=== PATIENT | male | born 1945 | race Caucasian/White ===

== ENCOUNTER 2022-04-20 05:39 | Inpatient (IN) | payer OTHER ==
[~2022-04-20] VITALS: Ht 172.7 cm; Wt 96.2 kg
[2022-04-20 05:41] VITALS: BP_SYST 137
--- NOTE | 2022-04-20 05:44 | NUR ---
PT BIB BLS TRANSPORT C/O NAUSEA SINCE 1600 YESTERDAY. PT DENIES ABD PAIN, DENIES V/D. PER PT IT GOT WORST WHEN STANDING WITH DIZZINESS. PMH;HTN,CAD WITH STENT PLACEMENT,DM, COPD PT AAO, NO SOB NOTED, PENDING MD ENRIQUEZ
--- NOTE | 2022-04-20 05:52 | NUR ---
# [20] gauge angiocath placed to [left forearm]. Use of asceptic technique. Opsite placed over site. Blood return noted. Blood for lab drawn from site. Flushed with 10 cc of normal saline. No evidence of infiltration noted. Patient tolerated well. BLOOD SENT TO LAB.
[2022-04-20 06:38] LABS: BASOPHILS % (AUTO) 0.4 % (0.0-2.0); EOSINOPHILS % (AUTO) 0.7 % (0.0-4.0); LYMPHOCYTES # (AUTO) 1.4 K/uL (1.0-5.5); LYMPHOCYTES % (AUTO) 22.6 % (20.5-51.5); MEAN CORPUSCULAR HEMOGLOBIN 36 pg (27-31); MEAN CORPUSCULAR HGB CONC 34 % (32-36); MEAN CORPUSCULAR VOLUME 104 fL (79.0-98.0); MONOCYTES # (AUTO) 0.8 K/uL (0.0-1.0); MONOCYTES % (AUTO) 12.7 % (1.7-9.3); NEUTROPHILS % (AUTO) 63.6 % (40.0-70.0); PLATELET COUNT (AUTO) 120 K/uL (130-430); RED CELL DISTRIBUTION WIDTH 18.4 % (9.0-15.0); WHITE BLOOD COUNT (AUTO) 6.2 K/uL (4.8-10.8)
[2022-04-20 07:00] LABS: RED BLOOD CELL COUNT(AUTO) 1.93 MIL/uL (4.2-6.2)
[2022-04-20 07:01] LABS: HEMOGLOBIN 6.8 g/dL (14.0-18.0)
[2022-04-20 07:19] LABS: ANION GAP 7 (5-15); CALCIUM 8.1 mg/dL (8.4-11.0); CHLORIDE 101 mmol/L (98-107); CREATININE 1.28 mg/dL (0.55-1.30); GLUCOSE 125 mg/dL (70-99); POTASSIUM 3.7 mmol/L (3.5-5.1); UREA NITROGEN, BLOOD 39 mg/dL (8-21)
--- NOTE | 2022-04-20 07:24 | NUR ---
covid 19 swab administeded by student nurse Shavonne and sent to lab for analysis.
[2022-04-20 07:26] LABS: ALANINE AMINOTRANSFERASE 35 U/L (12-78); ALBUMIN 2.9 g/dL (3.4-4.8); ASPARTATE AMINOTRANSFERASE 22 U/L (10-37); LIPASE 53 U/L (73-393); TOTAL BILIRUBIN 0.4 mg/dL (0.0-1.0)
[2022-04-20] MEDS ORDERED: ACETAMINOPHEN 500 MG TABLET ONE (07:28)
[2022-04-20] MEDS ORDERED: ACETAMINOPHEN 500 MG TABLET PO ONE (07:30)
--- NOTE | 2022-04-20 07:47 | NUR ---
PT ACCUCHECKED 61 LAST MEAL YESTERDAY AT 8PM. LAST DOSE OF INSULIN WAS LAST MIDNIGHT.
--- NOTE | 2022-04-20 08:01 | NUR ---
TEMP. REASSESSED 98.7 PT IS CLAMMY WITH COOLING MEASURES AND FAMILY BEDSIDE. BED DOWN RAILS UP. MD ORONA NOTIFIED. DIABETIC TRAY SERVED.
[2022-04-20] MEDS ORDERED: INSU100I40 (08:51)
[2022-04-20] MEDS ORDERED: ASA81 PO (08:51)
[2022-04-20] MEDS ORDERED: METO25TA3 PO (08:59)
[2022-04-20] MEDS ORDERED: BEN50 PO (08:59)
[2022-04-20] MEDS ORDERED: CYAN100T44 PO (08:59)
[2022-04-20] MEDS ORDERED: CLOP75TA32 PO (08:59)
[2022-04-20] MEDS ORDERED: SUVO20TA PO (08:59)
[2022-04-20] MEDS ORDERED: INSU100V38 SQ (08:59)
[2022-04-20] MEDS ORDERED: ROSU20TA2 PO (08:59)
[2022-04-20] MEDS ORDERED: PRO40 PO (08:59)
[2022-04-20] MEDS ORDERED: SITA100T11 PO (08:59)
[2022-04-20] MEDS ORDERED: GLIM4TAB PO (08:59)
[2022-04-20] MEDS ORDERED: INSU100I24 SQ (08:59)
[2022-04-20] MEDS ORDERED: FURO10VI27 IVP (08:59)
[2022-04-20] MEDS ORDERED: MELA10TA PO (08:59)
[2022-04-20] MEDS ORDERED: LISI-209 PO (08:59)
[2022-04-20] MEDS ORDERED: FER300L PO (08:59)
[2022-04-20] MEDS ORDERED: EMPA25TA PO (08:59)
[2022-04-20] MEDS ORDERED: CYAN100010 PO (08:59)
[2022-04-20] MEDS ORDERED: ZOLPIDEM TARTRATE 5 MG TABLET PO PRN (09:00)
[2022-04-20] MEDS ORDERED: DOCUSATE SODIUM 100 MG CAPSULE PO PRN (09:00)
[2022-04-20] MEDS ORDERED: MORPHINE 2 MG/ML INJ. SYRINGE IVP PRN ×2 (09:00)
[2022-04-20] MEDS ORDERED: ACETAMINOPHEN 325 MG TABLET PO PRN ×2 (09:00→09:45)
[2022-04-20] MEDS ORDERED: LORazepam 2 MG/ML VIAL IVP PRN (09:00)
[2022-04-20] MEDS ORDERED: POTASSIUM CHLORIDE 20 MEQ TAB.PRT.SR PO PRN (09:00)
[2022-04-20] MEDS ORDERED: MUPIROCIN 2% TOPICAL OINTMENT 22 GM NS PRN (09:00)
[2022-04-20] MEDS ORDERED: MAGNESIUM SULFATE 50 ML IV PRN (09:00)
[2022-04-20] MEDS ORDERED: DEXTROSE 50% JECT 50 ML DISP.SYRIN IVP PRN (09:00)
--- NOTE | 2022-04-20 09:01 | NUR ---
Note laurenjoesph in EDM - 04/20/22 at 0921 by JANEY AAdmit bed requested Patient will be admitted to care of . Admitted to TELE unit. Diagnosis SEVERE ANEMIA Inpatient (Yes or No) YES Observation (Yes or No) YES Orientation concerns or request close to nursing station (Yes or No) YES Covid Status NEG On vent or bipap NO Isolation requirements NO Needs a sitter NO From Home (Yes or if No enter name of facility) YES Requires Dialysis (Yes or No) NO Med Rec Completed (Yes of No) YES
[2022-04-20 09:20] LABS: BILIRUBIN,URINE NEGATIVE (NEGATIVE); BLOOD, URINE NEGATIVE (NEGATIVE); CLARITY/URINE CLEAR (CLEAR); COLOR,URINE YELLOW (YELLOW); GLUCOSE,URINE 3+ (NEGATIVE); KETONES,URINE NEGATIVE (NEGATIVE); LEUKOCYTE ESTERASE ,URINE NEGATIVE (NEGATIVE); NITRITE, URINE NEGATIVE (NEGATIVE); PH,URINE 5.5 (5.0-8.0); PROTEIN URINE NEGATIVE (NEGATIVE); UROBILINOGEN,URINE 0.2 (0.2-1.0)
--- NOTE | 2022-04-20 09:20 | NUR ---
ADMISSION REQUEST Patient will be admitted to care of . Admitted to TELE unit. Diagnosis SEVERE ANEMIA Inpatient (Yes or No) YES Observation (Yes or No) YES Orientation concerns or request close to nursing station (Yes or No) NO Covid Status NEG On vent or bipap NO Isolation requirements NO Needs a sitter NO
--- NOTE | 2022-04-20 09:21 | NUR ---
PT IS RESTING IN BED CONVERSING FULL SENTENCES DENIES SOB, DENIES DIZZINESS, DENIES NVD. PT STATES HAS HAD DARK TARRRY STOOLS PAST MONTHS SINCE MAY. PT NOTES MORPHINE SIDE EFFECTS OF NAUSEA ARE EXTREME. NOTIFIED MD ESPOSITO. PT NOTES 7 BACK SURGERIES TO LUMBAR AREA TRAUMA FROM SERVICE.
[2022-04-20 09:26] LABS: TOTAL IRON BIND. CAPACITY 340 ug/dL (250-450)
--- NOTE | 2022-04-20 09:40 | NUR ---
ADMISSION NOTE Received patient from ER via gurney. Patient admitted with diagnosis of Anemia. Patient is awake, alert, oriented X4. Patient oriented to hospital room, call light, toileting, pain management and safety-teach back done. Patient informed that Lynn will be his nurse and that their room number is 123 B. Personal belongings checked and Belongings List documented. Call light within reach.
[2022-04-20 09:51] VITALS: BP_SYST 125
--- NOTE | 2022-04-20 09:58 | NUR ---
CONSULTATION PAGED/CALLED Reason for Consultation: [] ELEVATED TROP Person Who was Notified: [] DR LATHAM Consulting Physician: [] DR LATHAM Tsa Screener Specialty: [] CARDIO Ordering Physician: [] DR ESPOSITO
[2022-04-20] MEDS ORDERED: CLOPIDOGREL BISULFATE 75 MG TABLET PO ONE (10:00)
[2022-04-20] MEDS ORDERED: ASPIRIN 81 MG TAB.CHEW PO ONE (10:00)
--- NOTE | 2022-04-20 10:03 | NUR ---
Patient will be admitted to care of MD ESPOSITO. Admitted to TELE unit. Will go to room 123B. Belongings list completed. Complete and up to date summary report printed.Report given TO HORCAIO DE at bedside with opportunity for questions.
[2022-04-20] MEDS ORDERED: LISI-652 PO (11:02)
[2022-04-20] MEDS: INSULIN LISPRO SLIDING SCALE 100 UNITS/ML, 3 ML VIAL (humaLOG) SUBCUT PRN ×3 (11:49→21:47)
[2022-04-20 11:58] VITALS: BP_SYST 135
--- NOTE | 2022-04-20 12:15 | NUR ---
NURSE NOTE PROVIDED PATIENT LUNCH, DENIES ANY PAIN OR DISCOMFORT. BED IN LOW AND LOCKED POSITION, CALL LIGHT WITHIN REACH.
--- NOTE | 2022-04-20 16:02 | NUR ---
NURSE NOTE PATIENT IN BED, RESPIRATIONS EVEN, NON LABORED, BED IN LOW AND LOCKED POSITION, CALL LIGHT WITHIN REACH. WAITING FOR LAB TO PREPARE PRBC'S
--- NOTE | 2022-04-20 16:38 | NUR ---
PAGED DR ESPOSITO REGARDING PATIENTS HOME MEDICATIONS
--- NOTE | 2022-04-20 16:50 | NUR ---
SPOKE WITH DR ESPOSITO REGARDING PATIENTS HOME MEDICATIONS, NEW ORDERS RECEIVED
--- NOTE | 2022-04-20 17:00 | NUR ---
nausea and sob patient complaining of nausea and shortness of breath. on RA patient O2 is 97% lungs clear
--- NOTE | 2022-04-20 17:03 | NUR ---
HOME MEDICATIONS PROVIDED 2 HOME MEDICATIONS TO THE PHARMACY
[2022-04-20] MEDS: ONDANSETRON HCL 4 MG/2 ML VIAL IVP PRN (17:11)
[2022-04-20 18:04] VITALS: BP_SYST 145
--- NOTE | 2022-04-20 18:10 | NUR ---
BT INITIATION: Consent signed per patient agreeing to administration of blood. Blood has been type and crossmatched. Blood sent from blood bank. Information on unit of blood checked against patient wristband at bedside by two nurses. All information matches. Patient or responsible green party informed of potential complications associated with blood transfusion. Informed of possible transfusion reaction symptoms. Aware of need to notify nurse at once of itching, shortness of breath, flushing, feeling of impending doom, or other symptoms not previously present. Vital signs taken within 5 minutes prior to initiation of transfusion. RN will remain with patient for first 15 minutes of transfusion at which time vital signs will be re-assessed.
--- NOTE | 2022-04-20 18:25 | NUR ---
BT OBTAINED VS, PATIENT DENIES ANY S/S OF REACTION. INCREASED RATE TO 125ML/HR
--- NOTE | 2022-04-20 19:23 | NUR ---
CLOSING NOTE PROVIDED SBAR TO NIGHT RN. PATIENT IN BED, RECEIVING 1 UNIT PRBC'S. ON 2L O2 NASAL CANULA. BED IS IN LOW POSITION, CALL LIGHT WITHIN REACH. ENDORSED TO NIGHT RN COMPLETION OF BLOOD TRANSFUSION AND CBC ORDER ONE HOUR AFTER COMPLETION. ENDORSED CARE TO NIGHT RN
--- NOTE | 2022-04-20 20:00 | NUR ---
RECIEVED PT FROM AM NURSE. AOX4 NORMALLY AMBULATORY, BUT STATED THAT HE GETS DIZZY WHEN GETTING UP. WILL RE-EVALUATE. PT IS RESTING IN BED CONVERSING FULL SENTENCES DENIES SOB, DENIES DIZZINESS AT THIS TIME, DENIES NVD. PT LUGS ARE CLEAR, HAS A BULGING ABD MASS TO BE BROUGHT O THE ATTN OF . PT TRANSFUSED 1 UNIT PRBCS FOR HG 6.8. WILL CONTINUE TO MONITOR.
[2022-04-20 20:08] VITALS: BP_SYST 137
[2022-04-20 20:09] VITALS: BP_SYST 137
[2022-04-20] MEDS ORDERED: BELSOMRA 20 MG PO SCH (21:00)
[2022-04-20] MEDS ORDERED: BUPRENORPHINE HCL/NALOXONE HCL 2-0.5 MG 1 EACH TAB.SUBL SL SCH (21:00)
[2022-04-20] MEDS: BUPRENORPHINE HCL/NALOXONE HCL 2-0.5 MG 1 EACH TAB.SUBL SL SCH (21:48)
[2022-04-20] MEDS: BELSOMRA 20 MG PO SCH (21:49)
--- NOTE | 2022-04-20 22:00 | NUR ---
FINISHED TRANSFUSION, NO SIDE EFFECTS SHOWING FOR TRASFUSION. POST TRANSFUSION VSS STABLE 134/74 86 BPM, RESP 20 SAT 98% NEW LAB DARIA 7.6. WILL ENDORSE TO AM SHIFT TO LET MD KNOW, WILL CONTINUE TO MONITOR VS
[2022-04-21 00:39] LABS: BASOPHILS % (AUTO) 0.4 % (0.0-2.0); EOSINOPHILS % (AUTO) 0.9 % (0.0-4.0); HEMATOCRIT 22.2 % (36-54); HEMOGLOBIN 7.6 g/dL (14.0-18.0); LYMPHOCYTES # (AUTO) 1.1 K/uL (1.0-5.5); MEAN CORPUSCULAR HEMOGLOBIN 34 pg (27-31); MEAN CORPUSCULAR HGB CONC 34 % (32-36); MEAN CORPUSCULAR VOLUME 100 fL (79.0-98.0); MONOCYTES # (AUTO) 0.5 K/uL (0.0-1.0); MONOCYTES % (AUTO) 10.2 % (1.7-9.3); NEUTROPHILS # (AUTO) 3.7 K/uL (1.8-7.7); NEUTROPHILS % (AUTO) 68.5 % (40.0-70.0); RED BLOOD CELL COUNT(AUTO) 2.21 MIL/uL (4.2-6.2); RED CELL DISTRIBUTION WIDTH 19.2 % (9.0-15.0); WHITE BLOOD COUNT (AUTO) 5.4 K/uL (4.8-10.8)
[2022-04-21 00:44] LABS: PLATELET COUNT (AUTO) 98 K/uL (130-430)
[2022-04-21 01:24] LABS: ALANINE AMINOTRANSFERASE 33 U/L (12-78); ALBUMIN 2.6 g/dL (3.4-4.8); ANION GAP 1 (5-15); ASPARTATE AMINOTRANSFERASE 18 U/L (10-37); CALCIUM 7.8 mg/dL (8.4-11.0); CHLORIDE 103 mmol/L (98-107); CREATININE 1.19 mg/dL (0.55-1.30); GLUCOSE 253 mg/dL (70-99); POTASSIUM 4.4 mmol/L (3.5-5.1); TOTAL BILIRUBIN 0.5 mg/dL (0.0-1.0); UREA NITROGEN, BLOOD 36 mg/dL (8-21)
[2022-04-21 02:45] VITALS: BP_SYST 134
[2022-04-21] MEDS: INSULIN LISPRO SLIDING SCALE 100 UNITS/ML, 3 ML VIAL (humaLOG) SUBCUT PRN ×4 (06:07→23:01)
[2022-04-21] MEDS: ONDANSETRON HCL 4 MG/2 ML VIAL IVP PRN (06:18)
[2022-04-21 07:54] LABS: BASOPHILS % (AUTO) 0.4 % (0.0-2.0); EOSINOPHILS # (AUTO) 0.1 K/uL (0.0-0.4); EOSINOPHILS % (AUTO) 0.8 % (0.0-4.0); HEMOGLOBIN 7.5 g/dL (14.0-18.0); LYMPHOCYTES # (AUTO) 0.8 K/uL (1.0-5.5); LYMPHOCYTES % (AUTO) 12.9 % (20.5-51.5); MEAN CORPUSCULAR HEMOGLOBIN 34 pg (27-31); MEAN CORPUSCULAR HGB CONC 34 % (32-36); MEAN CORPUSCULAR VOLUME 101 fL (79.0-98.0); MONOCYTES # (AUTO) 0.6 K/uL (0.0-1.0); MONOCYTES % (AUTO) 9.4 % (1.7-9.3); NEUTROPHILS # (AUTO) 4.9 K/uL (1.8-7.7); NEUTROPHILS % (AUTO) 76.5 % (40.0-70.0); PLATELET COUNT (AUTO) 100 K/uL (130-430); RED BLOOD CELL COUNT(AUTO) 2.17 MIL/uL (4.2-6.2); RED CELL DISTRIBUTION WIDTH 19.6 % (9.0-15.0); WHITE BLOOD COUNT (AUTO) 6.4 K/uL (4.8-10.8)
[2022-04-21 08:00] VITALS: BP_SYST 117
[2022-04-21 08:06] LABS: FERRITIN 33 ng/mL (30-400)
[2022-04-21] MEDS ORDERED: BISACODYL 5 MG TABLET.DR (DULCOLAX) PO ONE (08:45)
[2022-04-21] MEDS ORDERED: METOCLOPRAMIDE HCL 10 MG/2 ML VIAL IVP PRN (08:45)
[2022-04-21] MEDS: ASPIRIN 81 MG TAB.CHEW PO SCH (08:50)
[2022-04-21] MEDS: lisinopriL 5 MG TABLET PO SCH (08:51)
[2022-04-21] MEDS: ATORVASTATIN 20 MG TABLET PO SCH (08:52)
[2022-04-21] MEDS: METOPROLOL SUCCINATE 25 MG TAB.SR.24H (TOPROL XL) PO SCH (08:52)
[2022-04-21] MEDS ORDERED: ROSUVASTATIN CALCIUM 5 MG/TAB (CRESTOR) PO SCH (09:00)
[2022-04-21] MEDS: CLOPIDOGREL BISULFATE 75 MG TABLET PO SCH (10:25)
[2022-04-21 12:06] LABS: FOLATE (FOLIC ACID) 17.8 ng/mL (>3.0)
[2022-04-21 12:27] VITALS: BP_SYST 113
[2022-04-21 16:00] VITALS: BP_SYST 105
--- NOTE | 2022-04-21 18:33 | NUR ---
1744 occult blood stool collected
[2022-04-21 20:46] VITALS: BP_SYST 120
[2022-04-21] MEDS: BUPRENORPHINE HCL/NALOXONE HCL 2-0.5 MG 1 EACH TAB.SUBL SL SCH (22:56)
[2022-04-21] MEDS: BELSOMRA 20 MG PO SCH (22:57)
[2022-04-22] VITALS (8 sets, daily range): BP systolic 100–121
[2022-04-22 06:35] LABS: BASOPHILS % (AUTO) 0.2 % (0.0-2.0); LYMPHOCYTES # (AUTO) 0.9 K/uL (1.0-5.5); LYMPHOCYTES % (AUTO) 20.4 % (20.5-51.5); MEAN CORPUSCULAR HEMOGLOBIN 34 pg (27-31); MEAN CORPUSCULAR HGB CONC 34 % (32-36); MEAN CORPUSCULAR VOLUME 101 fL (79.0-98.0); MONOCYTES # (AUTO) 0.5 K/uL (0.0-1.0); MONOCYTES % (AUTO) 10.4 % (1.7-9.3); NEUTROPHILS # (AUTO) 3.2 K/uL (1.8-7.7); PLATELET COUNT (AUTO) 89 K/uL (130-430); RED CELL DISTRIBUTION WIDTH 19.3 % (9.0-15.0); WHITE BLOOD COUNT (AUTO) 4.7 K/uL (4.8-10.8)
[2022-04-22 07:14] LABS: ANION GAP 6 (5-15); CALCIUM 7.5 mg/dL (8.4-11.0); CHLORIDE 104 mmol/L (98-107); CREATININE 0.97 mg/dL (0.55-1.30); GLUCOSE 137 mg/dL (70-99); POTASSIUM 4.2 mmol/L (3.5-5.1); UREA NITROGEN, BLOOD 31 mg/dL (8-21)
--- NOTE | 2022-04-22 07:35 | NUR ---
OPEN NOTE Patient resting in bed. No notable signs of pain, distress or sob. Patient on room air with saturations at 100%. IV to L hand patent and on SL, Patient is A/O x4 lao speaking with BRP. All needs met at this time, bed locked in lowest position, call light within reach, will continue to monitor.
[2022-04-22 07:44] LABS: RED BLOOD CELL COUNT(AUTO) 1.72 MIL/uL (4.2-6.2)
[2022-04-22 07:46] LABS: HEMATOCRIT 17.4 % (36-54); HEMOGLOBIN 5.9 g/dL (14.0-18.0)
--- NOTE | 2022-04-22 08:02 | NUR ---
Attending md Dr Marques fire protection engineering technician for Dr Lee was called Re; Hgb 5.9.
[2022-04-22] MEDS: ASPIRIN 81 MG TAB.CHEW PO SCH (08:37)
[2022-04-22] MEDS: METOPROLOL SUCCINATE 25 MG TAB.SR.24H (TOPROL XL) PO SCH (08:37)
[2022-04-22] MEDS: ATORVASTATIN 20 MG TABLET PO SCH (08:38)
[2022-04-22] MEDS: lisinopriL 5 MG TABLET PO SCH (08:38)
[2022-04-22] MEDS: CLOPIDOGREL BISULFATE 75 MG TABLET PO SCH (08:38)
--- NOTE | 2022-04-22 09:56 | NUR ---
CONSULTATION PAGED REASON FOR CONSULTATION GI BLEED WAS CONSULT CALED?Y PERSON WHO WAS NOTIFIED:FEDERICO CONSULTING PHYSICIAN:CONCETTA MEJIA PIG IRON LOADER SPECIALTY:GI PIG IRON LOADER PHONE NUMBER:[phone] REQUESTING PHYSICIAN:
[2022-04-22] MEDS ORDERED: PANTOPRAZOLE SODIUM 40 MG/VIAL (PROTONIX) IVP ONE (10:30)
--- NOTE | 2022-04-22 12:48 | NUR ---
PATIENT ROUNDS Patient resting in bed. No notable signs of pain, distress or sob. Patient on room air with saturations at 100%. IV to L hand patent and on SL. All needs met at this time, bed locked in lowest position, call light within reach, will continue to monitor.
[2022-04-22] MEDS: INSULIN LISPRO SLIDING SCALE 100 UNITS/ML, 3 ML VIAL (humaLOG) SUBCUT PRN ×3 (12:54→22:04)
--- NOTE | 2022-04-22 14:05 | NUR ---
PATIENT IS TO RECEIVE 1 UNIT OF BLOOD, VITAL SIGNS WITHIN NORMAL LIMITS, VERIFIED BLOOD WITH RN OZZIE, BLOOD INFUSION STARTING AT THIS TIME, PATIENT HAS ZERO HX. REACTION TO BLOOD, TEACH PT. TO REPORT, CHEST PAIN, SOB, CHILLS, UNUSUAL SYMPTOMS DURING TRANSFUSION, PT. VERBALIZED UNDERSTANDING, PT. AGREES WITH PLAN OF CARE, RN WILL CONTINUE TO BE AVAILABLE TO HELP PATIENT NEEDED.ACCOUNTING MACHINE OPERATOR TO CONTINUE TO MONITOR PATIENT'S VITAL SIGNS PER PROTOCOL., PRIMARY CARE NURSE/ACCOUNTING MACHINE OPERATOR MADE AWARE.
--- NOTE | 2022-04-22 14:07 | NUR ---
BLOOD TRANSFUSION Patient receiving 1 unit of blood. Patient stable and no pain or SOB noted at this time. Patient tolerating blood transfusion at this moment. Will continue to monitor.
--- NOTE | 2022-04-22 16:15 | NUR ---
PATIENT ROUNDS Patient resting in bed. No notable signs of pain, distress or sob. Patient on room air with saturations at 100%. IV to L hand patent and on infusion pump. All needs met at this time, bed locked in lowest position, call light within reach, will continue to monitor.
--- NOTE | 2022-04-22 16:41 | NUR ---
Blood Transfusion Completed. Patient stated no pain, no SOB, no distress. Patient states he feels good and no adverse effects noted through out infusion. Will continue to monitor.
--- NOTE | 2022-04-22 16:50 | NUR ---
Blood transfusion completed, patient's vital signs within normal limits, patient asymptomatic and appear comfortable. Primary care Nurse to continue to monitor.
--- NOTE | 2022-04-22 18:54 | NUR ---
CLOSING NOTE Patient resting in bed, with at bedside. No notable signs of pain, distress or sob. Patient on room air with saturations at 100%. IV to L hand patent and on SL, Patient is A/O x4 faroese speaking with BRP. All needs met at this time, bed locked in lowest position, call light within reach, will endorse to nightshift nurse.
--- NOTE | 2022-04-22 21:45 | NUR ---
Patient ALERT using BSC as needed 02 SAT 96 % Respirations Regular also unlabored also using URINAL as needed .
[2022-04-22] MEDS: BELSOMRA 20 MG PO SCH (22:12)
[2022-04-22] MEDS: BUPRENORPHINE HCL/NALOXONE HCL 2-0.5 MG 1 EACH TAB.SUBL SL SCH (22:12)
[2022-04-23] VITALS (9 sets, daily range): BP systolic 102–145
--- NOTE | 2022-04-23 01:25 | NUR ---
Patient NPO this hour alert & aware for AM procedure EGD / .
--- NOTE | 2022-04-23 01:55 | NUR ---
Hourly Rounding patient Resting is verbally Responsive call hernandez given to patient FALL MEASURES in place / .
--- NOTE | 2022-04-23 02:13 | NUR ---
REGLAN 5 MG IVP administer for Nausea , HOB kept elevated & helpful .
--- NOTE | 2022-04-23 05:53 | NUR ---
BSG 161 mg dl , patient Refuse 2 units of insulin per sliding scale . Remains NPO
[2022-04-23 06:43] LABS: INR 1.1 (0.80-1.20); PROTHROMBIN TIME 11.3 SECS (9.5-12.5)
[2022-04-23 06:52] LABS: ANION GAP 2 (5-15); CALCIUM 7.6 mg/dL (8.4-11.0); CHLORIDE 104 mmol/L (98-107); CREATININE 0.91 mg/dL (0.55-1.30); GLUCOSE 178 mg/dL (70-99); POTASSIUM 4.9 mmol/L (3.5-5.1); UREA NITROGEN, BLOOD 26 mg/dL (8-21)
[2022-04-23 06:58] LABS: BASOPHILS % (AUTO) 0.5 % (0.0-2.0); EOSINOPHILS # (AUTO) 0.1 K/uL (0.0-0.4); EOSINOPHILS % (AUTO) 1.5 % (0.0-4.0); LYMPHOCYTES # (AUTO) 1.1 K/uL (1.0-5.5); LYMPHOCYTES % (AUTO) 25.9 % (20.5-51.5); MEAN CORPUSCULAR HEMOGLOBIN 34 pg (27-31); MEAN CORPUSCULAR HGB CONC 34 % (32-36); MEAN CORPUSCULAR VOLUME 100 fL (79.0-98.0); MONOCYTES # (AUTO) 0.4 K/uL (0.0-1.0); MONOCYTES % (AUTO) 9.9 % (1.7-9.3); NEUTROPHILS # (AUTO) 2.6 K/uL (1.8-7.7); NEUTROPHILS % (AUTO) 62.2 % (40.0-70.0); PLATELET COUNT (AUTO) 81 K/uL (130-430); RED CELL DISTRIBUTION WIDTH 20.5 % (9.0-15.0); WHITE BLOOD COUNT (AUTO) 4.2 K/uL (4.8-10.8)
--- NOTE | 2022-04-23 07:30 | NUR ---
OPEN NOTE Received report from nightshift nurse. Patient resting in bed. No notable signs of pain, distress or sob. Patient on room air with saturations at 100%. IV to L hand patent and on SL, Patient is A/O x4 Estonian speaking with BRP. All needs met at this time, bed locked in lowest position, call light within reach, will continue to monitor.
[2022-04-23] MEDS ORDERED: SIMETHICONE 40 MG/0.6 ML ML ONE (07:50)
[2022-04-23] MEDS ORDERED: MEPERIDINE 100 MG INJ. 100 MG/ML VIAL ONE (07:50)
[2022-04-23] MEDS ORDERED: MIDAZOLAM HCL 5 MG/5 ML VIAL ONE (07:50)
[2022-04-23 07:58] LABS: RED BLOOD CELL COUNT(AUTO) 1.92 MIL/uL (4.2-6.2)
[2022-04-23 08:14] LABS: HEMATOCRIT 19.2 % (36-54); HEMOGLOBIN 6.4 g/dL (14.0-18.0)
[2022-04-23] MEDS ORDERED: GLUCAGON,HUMAN RECOMBINANT 1 MG VIAL ONE (09:20)
--- NOTE | 2022-04-23 09:50 | NUR ---
PATIENT ROUNDS Patient back from EGD. Very sleepy and gassy. Had two bowel movements when arrived. No pain, no sob, no distress noted. Will continue to monitor.
[2022-04-23] MEDS: METOPROLOL SUCCINATE 25 MG TAB.SR.24H (TOPROL XL) PO SCH (10:10)
[2022-04-23] MEDS: ATORVASTATIN 20 MG TABLET PO SCH (10:11)
[2022-04-23] MEDS: ASPIRIN 81 MG TAB.CHEW PO SCH (10:11)
[2022-04-23] MEDS: lisinopriL 5 MG TABLET PO SCH (10:11)
[2022-04-23] MEDS: PANTOPRAZOLE SODIUM 40 MG/VIAL (PROTONIX) IVP SCH (10:46)
[2022-04-23] MEDS: INSULIN LISPRO SLIDING SCALE 100 UNITS/ML, 3 ML VIAL (humaLOG) SUBCUT PRN ×3 (12:01→21:04)
--- NOTE | 2022-04-23 18:48 | NUR ---
CLOSING NOTE Patient resting in bed, with at bedside. No notable signs of pain, distress or sob. Patient on room air with saturations at 100%. IV to L hand patent and on SL, Patient is A/O x4 bulgarian speaking with BRP. All needs met at this time, bed locked in lowest position, call light within reach, will endorse to nightshift nurse.
[2022-04-23] MEDS: BELSOMRA 20 MG PO SCH (21:04)
[2022-04-23] MEDS: BUPRENORPHINE HCL/NALOXONE HCL 2-0.5 MG 1 EACH TAB.SUBL SL SCH (21:05)
--- NOTE | 2022-04-23 22:51 | NUR ---
Patient awake alert using URINAL as needed , on SOFT PO diet tolerating call hernandez given to patient Respirations Remain Regular also unlabored / .
[2022-04-24 00:54] VITALS: BP_SYST 130
--- NOTE | 2022-04-24 03:23 | NUR ---
HOURLY ROUNDING patient awake using cell phone & tolerating soft po diet call hernandez given to patient .
[2022-04-24] MEDS: INSULIN LISPRO SLIDING SCALE 100 UNITS/ML, 3 ML VIAL (humaLOG) SUBCUT PRN ×3 (06:04→18:02)
[2022-04-24 08:12] LABS: ANION GAP 5 (5-15); CALCIUM 7.4 mg/dL (8.4-11.0); CHLORIDE 103 mmol/L (98-107); CREATININE 0.92 mg/dL (0.55-1.30); GLUCOSE 221 mg/dL (70-99); POTASSIUM 4.3 mmol/L (3.5-5.1); UREA NITROGEN, BLOOD 25 mg/dL (8-21)
[2022-04-24] MEDS: METOPROLOL SUCCINATE 25 MG TAB.SR.24H (TOPROL XL) PO SCH (08:37)
[2022-04-24] MEDS: ATORVASTATIN 20 MG TABLET PO SCH (08:46)
[2022-04-24] MEDS: ASPIRIN 81 MG TAB.CHEW PO SCH (08:46)
[2022-04-24] MEDS: PANTOPRAZOLE SODIUM 40 MG/VIAL (PROTONIX) IVP SCH (08:47)
[2022-04-24] MEDS: lisinopriL 5 MG TABLET PO SCH (08:47)
[2022-04-24 08:55] LABS: BASOPHILS % (AUTO) 0.6 % (0.0-2.0); EOSINOPHILS % (AUTO) 1.4 % (0.0-4.0); LYMPHOCYTES # (AUTO) 0.8 K/uL (1.0-5.5); LYMPHOCYTES % (AUTO) 23.8 % (20.5-51.5); MEAN CORPUSCULAR HEMOGLOBIN 32 pg (27-31); MEAN CORPUSCULAR HGB CONC 34 % (32-36); MEAN CORPUSCULAR VOLUME 96 fL (79.0-98.0); MONOCYTES # (AUTO) 0.4 K/uL (0.0-1.0); MONOCYTES % (AUTO) 11.1 % (1.7-9.3); NEUTROPHILS # (AUTO) 2.1 K/uL (1.8-7.7); NEUTROPHILS % (AUTO) 63.1 % (40.0-70.0); PLATELET COUNT (AUTO) 73 K/uL (130-430); RED BLOOD CELL COUNT(AUTO) 2.11 MIL/uL (4.2-6.2); RED CELL DISTRIBUTION WIDTH 23.1 % (9.0-15.0); WHITE BLOOD COUNT (AUTO) 3.4 K/uL (4.8-10.8)
[2022-04-24 09:08] LABS: HEMOGLOBIN A1C 8.2 % (4.8-5.6)
[2022-04-24 10:06] LABS: HEMOGLOBIN 6.8 g/dL (14.0-18.0)
[2022-04-24 10:07] LABS: HEMATOCRIT 20.2 % (36-54)
[2022-04-24] MEDS ORDERED: ACETAMINOPHEN 325 MG TABLET PO ONE (10:45)
[2022-04-24 12:28] VITALS: BP_SYST 127
[2022-04-24 16:45] VITALS: BP_SYST 124
[2022-04-24 18:17] VITALS: BP_SYST 127
[2022-04-24 18:33] LABS: HEMATOCRIT 25.4 % (36-54)
[2022-04-24 18:35] LABS: HEMOGLOBIN 8.4 g/dL (14.0-18.0)
[2022-04-24] MEDS ORDERED: PRO40 PO (19:00)
--- NOTE | 2022-04-25 08:33 | NUR ---
Dispo code 01
== END 2022-04-24 19:10 | disposition home or self-care (01) | DRG 840 ==
LOC: SED 05:39 → STU 09:00
PROVIDERS: ADMIT General Practice; ATTEND General Practice
PROC: 30233N1 Transfusion of Nonautologous Red Blood Cells into Peripheral Vein, Percutaneous Approach (ICD-10-PCS; principal; 2022-04-20)
PROC: 0DB68ZX Excision of Stomach, Via Natural or Artificial Opening Endoscopic, Diagnostic (ICD-10-PCS; 2022-04-23)
PROC: 0W3P8ZZ Control Bleeding in Gastrointestinal Tract, Via Natural or Artificial Opening Endoscopic (ICD-10-PCS; 2022-04-23)
DX: C90.00 Multiple myeloma not having achieved remission (principal); I21.A1 Myocardial infarction type 2; K31.811 Angiodysplasia of stomach and duodenum with bleeding; E44.0 Moderate protein-calorie malnutrition; D63.8 Anemia in other chronic diseases classified elsewhere; E11.9 Type 2 diabetes mellitus without complications; E78.5 Hyperlipidemia, unspecified; E86.0 Dehydration; G89.4 Chronic pain syndrome; I10 Essential (primary) hypertension; I25.10 Atherosclerotic heart disease of native coronary artery without angina pectoris; I35.0 Nonrheumatic aortic (valve) stenosis; E66.9 Obesity, unspecified; Z20.822 Contact with and (suspected) exposure to COVID-19; K29.70 Gastritis, unspecified, without bleeding; Z79.4 Long term (current) use of insulin; Z80.8 Family history of malignant neoplasm of other organs or systems; Z87.891 Personal history of nicotine dependence; Z90.49 Acquired absence of other specified parts of digestive tract; Z95.2 Presence of prosthetic heart valve; Z95.5 Presence of coronary angioplasty implant and graft; Z68.32 Body mass index [BMI] 32.0-32.9, adult; K59.00 Constipation, unspecified; T45.525A Adverse effect of antithrombotic drugs, initial encounter; Y92.89 Other specified places as the place of occurrence of the external cause
CPT/HCPCS: 36415; 36430; 43255; 71045; 80048; 80053; 81003; 82272; 82607; 82728; 82746; 82962; 83036; 83540; 83550; 83690; 83735; 83880; 84484; 85018; 85025; 85610-TC; 86886; 86900; 86901; 86920; 87081; 99285; C9113; G0378; J1610; J2175; J2250; J2405; J2765; P9021

== ENCOUNTER 2023-07-12 18:03 | Emergency (ER) | payer OTHER ==
[~2023-07-12] VITALS: Ht 172.7 cm; Wt 96.2 kg
[~2023-07-12 18:03] MED LIST: ASA81 PO; BEN50 PO; CLOP75TA32 PO; CYAN100010 PO; CYAN100T44 PO; EMPA25TA PO; FER300L PO; FURO10VI27 IVP; GLIM4TAB PO; INSU100I24 SQ; INSU100I46; INSU100V38 SQ; LISI-652 PO; MELATONIN10 MG PO; METO25TA3 PO; PRO40 PO; ROSU20TA2 PO; SITA100T11 PO; SUVO20TA PO
[2023-07-12 18:05] VITALS: BP_SYST 131; PULSE 89; RESP 20; TEMP 97.9; O2SAT 99
[2023-07-12] MEDS ORDERED: ONDANSETRON 4 MG ODT TAB PO ONE (18:30)
[2023-07-12] MEDS ORDERED: PANTOPRAZOLE SODIUM 40 MG TAB PO ONE (20:30)
[2023-07-12] MEDS ORDERED: MAG HYDROX/AL HYDROX/SIMETH 30 ML, DICYCLOMINE HCL 20 MG, LIDOCAINE VISCOUS 2% 15ML (PO... PO ONE ×3 (20:30)
[2023-07-12 21:20] LABS: BASOPHILS % (AUTO) 0.5 % (0.0-2.0); EOSINOPHILS % (AUTO) 0.5 % (0.0-4.0); HEMATOCRIT 33.1 % (36-54); HEMOGLOBIN 10.9 g/dL (14.0-18.0); LYMPHOCYTES # (AUTO) 0.4 K/uL (1.0-5.5); LYMPHOCYTES % (AUTO) 6.5 % (20.5-51.5); MEAN CORPUSCULAR HEMOGLOBIN 34 pg (27-31); MEAN CORPUSCULAR HGB CONC 33 % (32-36); MEAN CORPUSCULAR VOLUME 105 fL (79.0-98.0); MONOCYTES # (AUTO) 0.5 K/uL (0.0-1.0); MONOCYTES % (AUTO) 8.2 % (1.7-9.3); NEUTROPHILS # (AUTO) 5.3 K/uL (1.8-7.7); NEUTROPHILS % (AUTO) 84.3 % (40.0-70.0); PLATELET COUNT (AUTO) 120 K/uL (130-430); RED BLOOD CELL COUNT(AUTO) 3.17 MIL/uL (4.2-6.2); RED CELL DISTRIBUTION WIDTH 19.1 % (9.0-15.0); WHITE BLOOD COUNT (AUTO) 6.4 K/uL (4.8-10.8)
[2023-07-12 21:37] LABS: ALANINE AMINOTRANSFERASE 51 U/L (12-78); ALBUMIN 3.3 g/dL (3.4-4.8); ANION GAP 5 (5-15); ASPARTATE AMINOTRANSFERASE 41 U/L (10-37); CALCIUM 7.5 mg/dL (8.4-11.0); CARBON DIOXIDE 27 mmol/L (23-29); CHLORIDE 106 mmol/L (98-107); CREATININE 0.76 mg/dL (0.55-1.30); GLUCOSE 154 mg/dL (74-106); POTASSIUM 4.3 mmol/L (3.5-5.1); SODIUM SERUM 138 mmol/L (136-145); TOTAL BILIRUBIN 0.3 mg/dL (0.0-1.0); TOTAL PROTEIN, SERUM 7.8 g/dL (6.4-8.3); UREA NITROGEN, BLOOD 19 mg/dL (8-21)
[2023-07-12 21:43] LABS: INR 1.1 (0.80-1.20); PROTHROMBIN TIME 11.4 SECS (9.5-12.5)
[2023-07-12 21:47] LABS: AMYLASE 38 U/L (0-100); BILIRUBIN,DIRECT 0.1 mg/dL (0.0-0.3); LIPASE 26 U/L (16-77)
[2023-07-12] MEDS ORDERED: OMEP20CA15 PO (21:57)
[2023-07-12 23:11] VITALS: BP_SYST 131; PULSE 89; RESP 20; TEMP 98.1; O2SAT 99
== END 2023-07-12 23:11 | disposition home or self-care (01) ==
LOC: SED 18:03
DX: K29.70 Gastritis, unspecified, without bleeding (principal); E11.649 Type 2 diabetes mellitus with hypoglycemia without coma; I10 Essential (primary) hypertension; Z79.4 Long term (current) use of insulin; Z91.041 Radiographic dye allergy status; Z79.899 Other long term (current) drug therapy
CPT/HCPCS: 99284; 74176; 80076; 80048; 82150; 82962; 83690; 85025; 85610; 85730; 84484; 36415; 76376; 83605; 82397; J2001